=== PATIENT | female | born 1995 | race American Indian/Alaskan Native ===

== ENCOUNTER 2018-03-20 04:48 | Emergency (ER) | payer MEDICAID ==
[2018-03-20] MEDS ORDERED: MOTRIN PO ONE ×2 (05:47→06:45)
--- NOTE | 2018-03-20 07:33 | Emergency Department Report ---
ED ENT HPI - General Chief complaint: Dental/Oral Stated complaint: TOOTHACHE Time Seen by Provider: 03/20/18 07:29 Source: patient Mode of arrival: Ambulatory Limitations: No Limitations - History of Present Illness Initial comments: Patient reports dental pain that started two days ago complaint: tooth pain Onset/Timin -: days(s) Location: tooth # (17, 18 and 19) Severity: moderate Severity scale (0 -10): 6 Quality: other (throbbing) Consistency: constant Improves with: none Worsens with: movement Context-Epistaxis: other (none) Context- Dental: poor dental care Context- Ear: other (none) Associated Symptoms: gum swelling, toothache. denies: fever, cough, pain with swallowing, sore throat, tinnitus, hearing loss, discharge from ear, rhinorrhea - Related Data Previous Rx's Medication Instructions Recorded Last Taken Type Nitrofurantoin [place]/M-Cryst 100 mg PO Q12HR #14 capsule 06/05/16 Unknown Rx [Macrobid CAP] Acetaminophen/Codeine [Tylenol 1 tab PO Q6H PRN #10 tab 03/20/18 Unknown Rx /Codeine # 3 tab] Ibuprofen 400 mg PO TID PRN #30 tablet 03/20/18 Unknown Rx Penicillin Vk [Veetids TAB] 250 mg PO QID #40 tablet 03/20/18 Unknown Rx Allergies Allergy/AdvReac Type Severity Reaction Status Date / Time No Known Allergies Allergy Verified 03/26/15 05:58 ED Dental HPI - General Chief complaint: Dental/Oral Stated complaint: TOOTHACHE Source: patient Mode of arrival: Ambulatory Limitations: No Limitations - Related Data Previous Rx's Medication Instructions Recorded Last Taken Type Nitrofurantoin [place]/M-Cryst 100 mg PO Q12HR #14 capsule 06/05/16 Unknown Rx [Macrobid CAP] Acetaminophen/Codeine [Tylenol 1 tab PO Q6H PRN #10 tab 03/20/18 Unknown Rx /Codeine # 3 tab] Ibuprofen 400 mg PO TID PRN #30 tablet 03/20/18 Unknown Rx Penicillin Vk [Veetids TAB] 250 mg PO QID #40 tablet 03/20/18 Unknown Rx Allergies Allergy/AdvReac Type Severity Reaction Status Date / Time No Known Allergies Allergy Verified 03/26/15 05:58 ED Review of Systems ROS: Stated complaint: TOOTHACHE Other details as noted in HPI Constitutional: no symptoms reported Eyes: denies: eye pain, eye discharge, vision change ENT: dental pain Respiratory: denies: cough, shortness of breath, wheezing Cardiovascular: denies: chest pain, palpitations Neurological: denies: headache, weakness, paresthesias Psychiatric: denies: anxiety, depression ED Past Medical Hx - Past Medical History Hx Hypertension: No Hx Congestive Heart Failure: No Hx Diabetes: No Hx Deep Vein Thrombosis: No Hx Renal Disease: No Hx Sickle Cell Disease: No Hx Seizures: No Hx Asthma: No Hx COPD: No Hx HIV: No Additional medical history: heart murmur - Surgical History Past Surgical History?: No - Social History Smoking Status: Never Smoker Substance Use Type: None - Medications Home Medications: Home Medications Medication Instructions Recorded Confirmed Last Taken Type Nitrofurantoin [place]/M-Cryst 100 mg PO Q12HR #14 capsule 06/05/16 Unknown Rx [Macrobid CAP] Acetaminophen/Codeine [Tylenol 1 tab PO Q6H PRN #10 tab 03/20/18 Unknown Rx /Codeine # 3 tab] Ibuprofen 400 mg PO TID PRN #30 tablet 03/20/18 Unknown Rx Penicillin Vk [Veetids TAB] 250 mg PO QID #40 tablet 03/20/18 Unknown Rx ED Physical Exam - General Limitations: No Limitations General appearance: alert, in no apparent distress - Head Head exam: Present: atraumatic, normocephalic, normal inspection - Eye Eye exam: Present: normal appearance, PERRL, EOMI Pupils: Present: normal accommodation - ENT ENT exam: Present: normal exam, mucous membranes moist, TM's normal bilaterally , normal external ear exam - Expanded ENT Exam Expanded Ear exam: Present: normal external inspection. Absent: auricular hematoma, auricular trauma Mouth exam: Present: normal external inspection, tongue normal. Absent: drooling, trismus, tongue elevation, laceration Teeth exam: Present: dental tenderness # (17, 18 and 19), gingival enlargement. Absent: dental caries, fractured tooth # Throat exam: Positive: normal inspection. Negative: tonsillar erythema, tonsillomegaly, tonsillar exudate, R peritonsillar mass, L peritonsillar mass - Neck Neck exam: Present: normal inspection, full ROM. Absent: tenderness, meningismus, lymphadenopathy, thyromegaly - Respiratory Respiratory exam: Present: normal lung sounds bilaterally. Absent: respiratory distress, wheezes, rales, rhonchi, stridor, chest wall tenderness, accessory muscle use, decreased breath sounds, prolonged expiratory - Cardiovascular Cardiovascular Exam: Present: regular rate, normal rhythm, normal heart sounds. Absent: bradycardia, tachycardia, irregular rhythm, systolic murmur, diastolic murmur, rubs, gallop - Neurological Exam Neurological exam: Present: alert, oriented X3, CN II-XII intact, normal gait, reflexes normal. Absent: motor sensory deficit - Psychiatric Psychiatric exam: Present: normal affect, normal mood - Skin Skin exam: Present: warm, dry, intact, normal color ED Course Vital Signs 03/20/18 05:36 Temperature 98.9 F Pulse Rate 79 Respiratory 16 Rate Blood Pressure 100/68 O2 Sat by Pulse 100 Oximetry - Reevaluation(s) Reevaluation #1: 03/20/18 07:32 analgesics given in triage ED Medical Decision Making - Lab Data Temp Pulse Resp BP Pulse Ox 98.9 F 79 16 100/68 100 03/20/18 05:36 03/20/18 05:36 03/20/18 05:36 03/20/18 05:36 03/20/18 05:36 - Medical Decision Making During the course of ED, analgesics were given in triage. Patient reports some improvement with dental pain. She was sent home with prescriptions for Pen VK, Ibuprofen and Tylenol with codeine, instructed to follow up with dentistry [facility]. She verbalized understanding - Differential Diagnosis Dental Pain, Dental Abscess Critical care attestation.: If time is entered above; I have spent that time in minutes in the direct care of this critically ill patient, excluding procedure time. ED Disposition Clinical Impression: Pain, dental Disposition: [id number] TO HOME OR SELFCARE Is pt being admited?: No Does the pt Need Aspirin: No Condition: Stable Instructions: Toothache (ED) Additional Instructions: Take medication as directed. No drinking or driving while taking medication. Follow up with dentistry [facility] Prescriptions: Acetaminophen/Codeine [Tylenol /Codeine # 3 tab] 1 tab PO Q6H PRN #10 tab PRN Reason: Pain , Severe (7-10) Ibuprofen 400 mg PO TID PRN #30 tablet PRN Reason: Pain, Moderate (4-6) Penicillin Vk [Veetids TAB] 250 mg PO QID #40 tablet Referrals: [facility] [Outside] - 3-5 Days Forms: Work/School Release Form(ED) Time of Disposition: 07:38 Print Language: FRENCH
[2018-03-20 08:14] VITALS: BP 99/60
== END 2018-03-20 08:14 | disposition home or self-care (01) ==
LOC: ED 04:48
DX: K08.89 Other specified disorders of teeth and supporting structures (principal)
CPT/HCPCS: 99282